=== PATIENT | female | born 1990 | race Caucasian/White ===

== ENCOUNTER 2018-07-30 09:40 | Inpatient (IN) | payer BC ==
[2018-07-30] MEDS ORDERED: Nalbuphine 10 MG/1 ML Vial IVPUSH PRN (10:55)
[2018-07-30] MEDS ORDERED: Sodium Chloride 0.9% 10 ML Syringe FLUSH PRN (10:55)
[2018-07-30] MEDS ORDERED: Lidocaine 1% 50 ML MDV INJECT PRN (10:55)
[2018-07-30] MEDS ORDERED: Oxytocin/Lactated Ringers 10 UNIT/1,000 ML BAG IV SCH ×2 (11:00)
[2018-07-30] MEDS ORDERED: Misoprostol 200 MCG Tab VAG SCH ×2 (11:00→14:00)
[2018-07-30] MEDS: Misoprostol 25 MCG (1/4 of 100 MCG) Tab ONE ×2 (11:30→11:37)
[2018-07-30] MEDS ORDERED: Bupivacaine 0.25% 10 ML SDV ONE (12:00)
[2018-07-30] MEDS ORDERED: ePHEDrine 50 MG/ML SDV IVPUSH PRN (12:32)
[2018-07-30] MEDS ORDERED: fentaNYL 100 MCG/2 ML SDV EPIDUR PRN (12:32)
[2018-07-30] MEDS ORDERED: Ondansetron 4 MG/2 ML SDV IVPUSH PRN (12:32)
--- NOTE | 2018-07-30 12:34 | PCM.PREANE ---
Preanesthetic Assessment - Anesthesia/Transfusion/Family Hx Anesthesia History: Prior Anesthesia Without Reaction Family History of Anesthesia Reaction: No Transfusion History: No Prior Transfusion(s) Intubation History: Unknown - Review of Systems General: No Symptoms Pulmonary: No Symptoms Cardiovascular: No Symptoms, Dyspnea on Exertion (with ) Gastrointestinal: No Symptoms (GERD) Neurological: No Symptoms, Numbness (right hand and left upper arm with ) Other: Reports: None - Physical Assessment NPO Status Date: 07/30/18 NPO Status Time: 12:30 Pulse: 98 O2 Sat by Pulse Oximetry: 99 Respiratory Rate: 16 Blood Pressure: 120/80 Temperature: 37 C Vital Signs: Last Vital Signs Temp 37.0 C 07/30/18 09:58 Pulse 98 07/30/18 11:33 Resp 16 07/30/18 09:58 BP 120/80 07/30/18 11:33 Pulse Ox Height: 1.63 m Weight: 97.522 kg ASA Class: 2 Mental Status: Alert & Oriented x3 Airway Class: Mallampati = 2 Dentition: Reports: Normal Dentition, Caries Thyro-Mental Finger Breadths: 3 Mouth Opening Finger Breadths: 3 ROM/Head Extension: Full Lungs: Clear to Auscultation, Normal Respiratory Effort Cardiovascular: Regular Rate, Regular Rhythm, No Murmurs - Lab Values: All labs reviewed and noted and within acceptable ranges to proceed with epidural if desired. - Allergies Allergies/Adverse Reactions: Allergies Allergy/AdvReac Type Severity Reaction Status Date / Time No Known Allergies Allergy Verified 05/23/14 02:10 CDT - Anesthesia Plan Pre-Op Medication Ordered: None - Acknowledgements Anesthesia Type Planned: Epidural Pt an Appropriate Candidate for the Planned Anesthesia: Yes Alternatives and Risks of Anesthesia Discussed w Pt/Guardian: Yes Pt/Guardian Understands and Agrees with Anesthesia Plan: Yes PreAnesthesia Questionnaire Gastrointestinal History: Reports: Other (See Below) (Some type of esophageal surgery was performed when she was a baby.) 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 Colposcopically directed biopsies in 2017 revealed LIZZETH-1. Patient has had 1 miscarriage prior to this .) - HOME MEDS Home Medications: Home Meds Folic Acid 0.8 mg PO DAILY 07/30/18 [History] PNV95/Ferrous Fumarate/FA [ Vitamin Tablet] 1 each PO DAILY 07/30/18 [ History] - CURRENT (IN HOUSE) MEDS Current Meds: Current Medications Lactated Ringer's (Ringers, Lactated) 1,000 mls @ 100 mls/hr IV ASDIRECTED JHONNY Oxytocin/Lactated Ringer's (Pitocin In Lr 10 Units/1,000 Ml) 10 unit in 1,000 mls @ 12 mls/hr IV TITRATE JHONNY; Protocol Oxytocin/Lactated Ringer's (Pitocin In Lr 10 Units/1,000 Ml) 10 unit in 1,000 mls @ 500 mls/hr IV .CONTINUOUS JHONNY Lidocaine HCl (Xylocaine 1%) 50 ml INJECT ONETIME PRN PRN Reason: Breakthrough Pain Misoprostol (Cytotec) 25 mcg VAG NOW JHONNY Misoprostol (Cytotec) 50 mcg VAG Q3HR JHONNY Nalbuphine HCl (Nubain) 10 mg IVPUSH Q2H PRN PRN Reason: Pain Sodium Chloride (Saline Flush) 10 ml FLUSH ASDIRECTED PRN PRN Reason: Keep Vein Open Discontinued Medications Misoprostol (Cytotec) Confirm Administered Dose 25 mcg .ROUTE .STK-MED ONE Stop: 07/30/18 11:12 Last Admin: 07/30/18 11:30 Dose: 25 mcg
[2018-07-30] MEDS ORDERED: Phenylephrine 1 MG in Sodium Chloride 0.9% 10 ML IV SCH (12:45)
[2018-07-30] MEDS ORDERED: Bupivacaine/fentaNYL/NS 100 ML Bag EPIDUR SCH (12:45)
[2018-07-30] MEDS: Lactated Ringers 1,000 ML IV SCH ×3 (14:30→18:14)
--- NOTE | 2018-07-30 16:02 | PCM.LDHP ---
L&D History of Present Illness - General Date of Service: 07/30/18 Admit Problem/Dx: Patient Status Order with Admit Dx/Problem 07/30/18 11:03 Admission Status [Patient Status] [ADT] Routine Admission Diagnosis/Problem Admission Diagnosis/Problem 07/30/18 15:43 27-year-old 2 para 0010 white female at 36 and 6/7 weeks gestational age with an DEO of 08/21/2018 admitted to labor and delivery with signs/symptoms of preeclampsia without severe features. Source of Information: Patient History Limitations: Reports: No Limitations - History of Present Illness Introduction:: Cindy is a 27-year-old 2 para 0010 white female at 36 and 6/7 weeks gestational age with an DEO of 08/21/2018 admitted to labor and delivery with signs/symptoms of preeclampsia without severe features. Patient was seen yesterday in clinic and again today in clinic with borderline elevated blood pressures. Preeclampsia labs were done yesterday and were entirely within normal limits. She has had symptoms possibly consistent with mild preeclampsia including headaches, spots in her vision and significant swelling. Over the course of the last week the patient has gained 7.4 pounds and in the last day she has gained 2.2 pounds. She has 1+ pitting edema and her deep tendon reflexes are +3 over 4 bilaterally in lower extremities. She does not feel well and is complaining of swelling to the degree that she is unable to close her hands. She has noted increased facial swelling also. He has been active. Nonstress test done in clinic today is reactive. She is admitted for induction of labor. Her cervix is 2 cm, 70% effaced, soft consistency, -3 station and posterior position. Artificial rupture membranes is undertaken after she had had 1 dose of Cytotec 25 g vaginally. She is david mildly at this time. heart tones are very reassuring. 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 Patient's certain last menstrual period was on 11/05/2018. Her is dated by an early ultrasound done on 2017 at 9-6/7 weeks gestational age and is supported by 3 other ultrasounds in the . Patient had 1 previous which ended in a miscarriage at 10 weeks gestational age on 09/20/2017. She passed this naturally. Patient was first seen on 01/01/2018. She was seen on a regular basis throughout the . Her vital signs remained stable until just the last week of the . Her weight gain was from 171-215 pounds for a 44+ pound weight gain. Her fundal height growth has been appropriate. Baby is in a vertex presentation. Abnormal 1 hour glucose tolerance test. Her 3 hour glucose tolerance test however was normal. She is a centering patient. Her first Pap smear showed ASCUS changes with positive high-risk HPV. Colposcopy was performed but no biopsies were obtained findings were consistent with LIZZETH-1.. Patient is group B strep negative. She had a low serum progesterone and was placed on progesterone supplementation early in the . Patient has had significant restless leg syndrome symptoms towards end of the . She did have her T dap administered on 06/24/2018. Laboratory testing shows blood to be O+ with a negative antibody screen. Her first hemoglobin was 12.8 g/dL and platelets are 311,000. She is rubella immune. RPR is nonreactive. Urine culture was negative. Hepatitis B surface antigen and HIV assays were both negative. Chlamydia and gonorrhea assays were both negative. Her diabetic screening test at second trimester was 175 and a 3 hour glucose tolerance test was normal with values as follows: Fasting blood sugar 74, 1 hour glucose 136, 2 hour glucose 110 and 3 hour glucose 43. Platelets were 301,000 at that time and her hemoglobin was 11.5 g/ dL. Patient was started on ferrous sulfate 325 mg by mouth daily at that time. Third trimester RPR was nonreactive. Platelets on 07/29/2018 were 302,000. Last hemoglobin was 11.0 on 07/29/2018. At that time her uric acid was 4.1 and liver function studies and kidney function studies were normal. Labs being done in evaluation of her borderline blood pressure elevation. Group B strep screen was negative. Allergies none Medications: 1. Hydroxyzine HCL-50 mg by mouth every at bedtime when necessary for restless leg 2. Ferrous sulfate 325 mg by mouth daily 3. vitamins 1 orally daily 4. Hardin catheter daily Past medical history: 1. Abnormal Pap smear with a LEEP in 2017ASCUS with high-risk HPV results on Pap smear with this with probable LIZZETH-1 noted on colposcopy. 2. Spontaneous miscarriage September 2017. 3. Low progesterone with this Past surgical history: 1. LEEP 2017 2. Esophageal surgery as a baby Family history: Distant cousin on mother's side with autism. Mother is alive and well. Hodgkin's lymphoma at age 28 is now 48 years of age. Father is alive and well at age 50. One brother and 2 sisters are alive and well. Maternal grandfather and maternal grandmother are both alive and well. Paternal grandfather is alive but has some type of cancer involving his back/spine. Paternal grandmother is alive but has had 2 heart attacks. She is a smoker. There is no close relation family history of cancer otherwise, regulate issues, anesthesia, bleeding or blood clotting problems. One great aunt is thought to possibly have some type of cancer. Social history: Patient is . is Misael Campared. They live in [facility]. 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 She does not use any significant most alcohol, drugs or tobacco.Review of systems: In general patient has no complaints. Skin: Negative Lungs: No infectious symptoms or shortness of breath Cardiovascular: No chest pain or exercise intolerance Breasts: Changes associated with . GI: Negative : changes Musculoskeletal: Negative Neurological: Negative Physical exam: Blood pressures obtained at home and in clinic over the course of the last 24 hours show systolic blood pressures ranging from 118-2136. Diastolic blood pressures are in the 85-98 range. Other vital signs are stable however. In general the patient is well-developed, well-nourished, pleasant female of stated age in mild to moderate distress. She had headache, on the way into the clinic today and reports significant swelling which is very uncomfortable. Skin is warm dry without lesions. She has 1+ pitting edema in lower extremities and has very edematous hands and face. HEENT, neck and back within normal limits. Facial edema noted Lungs are clear with good breath sounds in all lung brown. Cardiovascular exam shows regular and rhythm without murmurs. Breast exam is deferred. Patient plans to breast-feed. Abdomen is protuberant . Fundal height is approximately 37 cm with baby in vertex presentation. Genital exam shows cervix as described above.. Extremities and neurological show 1+ pitting edema in bilateral lower extremities. Deep tendon reflexes are +3/4 in bilateral lower extremities. No significant clonus is noted. 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 Colposcopically directed biopsies in 2017 revealed LIZZETH-1. Patient has had 1 miscarriage prior to this .) Other OB/BYN History: mild dysplasia of cervix. low serum progesterone level Musculoskeletal History: Reports: Other (See Below) Other Musculoskeletal History: restless leg syndrome - Past Surgical History HEENT Surgical History: Reports: None Cardiovascular Surgical History: Reports: None GI Surgical History: Reports: Other (See Below) Other GI Surgeries/Procedures: esophageal surgery as a 3 month old Female Surgical History: Reports: None Musculoskeletal Surgical History: Reports: None Social & Family History - Family History Cardiac: Reports: DE, Other (See Below) Respiratory: Reports: None Neurological: Reports: Other (See Below) Hematologic: Reports: Transfusion Reaction, Other (See Below) Oncologic: Reports: Hodgkin's Lymphoma, Other (See Below) Other Oncologic Family History: PGF - spine cancer - Tobacco Use Smoking Status *Q: Never Smoker Second Hand Smoke Exposure: No - Caffeine Use Caffeine Use: Reports: None - Recreational Drug Use Recreational Drug Use: No H&P Review of Systems - Review of Systems: Review Of Systems: See Below L&D Exam - Exam Exam: See Below - Vital Signs Vital Signs: Last Vital Signs Temp 37 C 07/30/18 13:39 Pulse 98 07/30/18 13:39 Resp 16 07/30/18 13:39 BP 120/80 07/30/18 13:39 Pulse Ox 99 07/30/18 13:39 Weight: 97.522 kg Problem List Initiated/Reviewed/Updated: Yes Orders Last 24hrs: Active Orders 24 hr Category Date Time Status Admission Status [Patient Status] [ADT] Routine ADT 07/30/18 11:03 Active Activity as Tolerated [RC] PFP Care 07/30/18 10:55 Active Communication Order [RC] ASDIRECTED Care 07/30/18 10:55 Active Notify Provider [RC] ASDIRECTED Care 07/30/18 12:31 Active Notify Provider [RC] PFP Care 07/30/18 10:55 Active Notify Provider [RC] PRN Care 07/30/18 10:55 Active Oxygen Therapy [RC] ASDIRECTED Care 07/30/18 12:31 Active Peripheral IV Care [RC] Q2HR Care 07/30/18 10:55 Active Pulse Oximetry [RC] ASDIRECTED Care 07/30/18 12:31 Active Vital Signs [RC] PER UNIT ROUTINE Care 07/30/18 09:58 Active Regular Diet [DIET] Diet 07/30/18 Lunch Active RAPID PLASMA REAGIN,RPR [CHEM] Routine Lab 07/30/18 11:23 Received Bupivacaine/fentaNYL/NS [fentaNYL/Bupivacaine/NS 2 MCG- Med 07/30/18 12:45 Active 0.125% 100 ML] 100 ml EPIDUR ASDIRECTED Lactated Ringers [Ringers, Lactated] 1,000 ml Med 07/30/18 11:00 Active IV ASDIRECTED Lidocaine 1% [Xylocaine 1%] Med 07/30/18 10:55 Active 50 ml INJECT ONETIME PRN Nalbuphine [Nubain] Med 07/30/18 10:55 Active 10 mg IVPUSH Q2H PRN Ondansetron [Zofran] Med 07/30/18 12:32 Active 4 mg IVPUSH ONETIME PRN Oxytocin/Lactated Ringers [Pitocin in LR 10 Units/1,000 Med 07/30/18 11:00 Active ML] 10 unit in 1,000 ml IV .CONTINUOUS Oxytocin/Lactated Ringers [Pitocin in LR 10 Units/1,000 Med 07/30/18 11:00 Active ML] 10 unit in 1,000 ml IV TITRATE Phenylephrine [Aba-Synephrine] 1 mg Med 07/30/18 12:45 Active Sodium Chloride 0.9% [Normal Saline] 10 ml IV TITRATE Sodium Chloride 0.9% [Saline Flush] Med 07/30/18 10:55 Active 10 ml FLUSH ASDIRECTED PRN ePHEDrine [ePHEDrine sulfate] Med 07/30/18 12:32 Active 5 mg IVPUSH ASDIRECTED PRN fentaNYL [Sublimaze] Med 07/30/18 12:32 Active 100 mcg EPIDUR Q3H PRN miSOPROStol [Cytotec] Med 07/30/18 11:00 Active 25 mcg VAG NOW Electronic Heart Tones Ext w TOCO [WOMSER] Ot 07/30/18 10:55 Ordered Routine Electronic Heart Tones Internal [WOMSER] Per Unit Ot 07/30/18 10:55 Ordered Routine Peripheral IV Insertion Adult [OM.PC] Routine Ot 07/30/18 10:55 Ordered Resuscitation Status Routine Resus Stat 07/30/18 09:58 Ordered Medication Orders Ephedrine Sulfate (Ephedrine Sulfate) 5 mg IVPUSH ASDIRECTED PRN PRN Reason: Hypotension Fentanyl (Sublimaze) 100 mcg EPIDUR Q3H PRN PRN Reason: Pain Fentanyl/Bupivacaine HCl (Fentanyl/Bupivacaine/Ns 2 Mcg-0.125% 100 Ml) 100 ml EPIDUR ASDIRECTED JHONNY Lactated Ringer's (Ringers, Lactated) 1,000 mls @ 100 mls/hr IV ASDIRECTED JHONNY Last Admin: 07/30/18 14:30 Dose: 100 mls/hr Oxytocin/Lactated Ringer's (Pitocin In Lr 10 Units/1,000 Ml) 10 unit in 1,000 mls @ 12 mls/hr IV TITRATE JHONNY; Protocol Last Titration: 07/30/18 14:58 Dose: 4 munits/min, 24 mls/hr Admin: 07/30/18 14:30 Dose: 2 munits/min, 12 mls/hr Oxytocin/Lactated Ringer's (Pitocin In Lr 10 Units/1,000 Ml) 10 unit in 1,000 mls @ 500 mls/hr IV .CONTINUOUS JHONNY Phenylephrine HCl 1 mg/ Sodium (Chloride) 10.1 mls @ 1 mls/sec IV TITRATE JHONNY; Protocol Lidocaine HCl (Xylocaine 1%) 50 ml INJECT ONETIME PRN PRN Reason: Breakthrough Pain Misoprostol (Cytotec) 25 mcg VAG NOW JHONNY Nalbuphine HCl (Nubain) 10 mg IVPUSH Q2H PRN PRN Reason: Pain Ondansetron HCl (Zofran) 4 mg IVPUSH ONETIME PRN PRN Reason: Nausea/Vomiting Sodium Chloride (Saline Flush) 10 ml FLUSH ASDIRECTED PRN PRN Reason: Keep Vein Open Assessment/Plan Comment:: 1. 36-6/7 week intrauterine , preeclampsia without severe features. Signs/symptoms include significant edema, excessive weight gain, increased deep tendon reflexes and hypertension. 2. Laboratory testing done yesterday for -induced hypertension evaluation is essentially negative. 3. Patient plans to breast-feed. 4. Patient wishes to do natural labor but is accepting of epidural 5. RPR nonreactive 6. Rubella immune Plan: 1. Induction of labor. The procedure, risks, benefits, alternatives of care discussed in detail with patient and her . It appeared to understand and wish to proceed with the plan. Patient has received 1 dose of Cytotec and now has undergone artificial rupture membranes for induction/augmentation of labor. She has made cervical change with the Cytotec. 2. Monitor blood pressures closely. Treat as indicated. We'll monitor deep tendon reflexes. 3. Anticipate normal spontaneous vaginal delivery 4. Support breast-feeding decision 5. Epidural was offered if patient desires 6. RPR and CBC upon admission
[2018-07-30] MEDS ORDERED: diphenhydrAMINE 50 MG/ML SDV IVPUSH PRN (17:57)
--- NOTE | 2018-07-30 20:42 | PCM.SN ---
- Free Text/Narrative Note: Jimmy is a 27-year-old 2 now para 1011 white female who was admitted early on 07/30/2018 for elevated blood pressures, signs/symptoms of preeclampsia without severe features. Her pressures systolically were mildly elevated as were diastolic blood pressures mainly in the 90s. She was edematous and again significant amount of weight in the last week. Liver function studies and kidney function studies along with uric acid within normal limits on the day prior to admission. She is admitted and had 1 dose of Cytotec placed for cervical ripening. Cervix dilated to 2 cm, 70% effaced, -3 station, posterior position and soft. Artificial rupture membranes was undertaken with resultant clear amniotic fluid. She progressed relatively rapidly. She underwent epidural for labor and analgesia. By approximately 1930 hrs. and became completely dilated. At 2012 hrs. on 07/30/2018 patient delivered a viable, lopes, female with a weight of 2870 g (6 pounds 5.2 ounces), Apgars of 7 and 9. Baby delivered in a left occiput anterior position. Patient had a small vaginal laceration at 6 o'clock position. No perineal laceration was noted. After delivery the cord was clamped 2 and cut by the baby's father. Cord blood was obtained. The vaginal laceration was repaired with 3-0 Monocryl in a running lock suture fashion. Epidural analgesia was used for anesthesia for the vaginal laceration repair. The placenta delivered at 2020 hrs. in a Florentino presentation, appeared intact and complete and was scarred patient desire. No cord had 3 blood vessels. Cord blood was obtained. This will also approximately 200 mL. Patient plans to breast -feed. Condition: Good.
[2018-07-30] MEDS ORDERED: Lanolin 100% Cream 7 GM Tube TOP PRN (21:04)
[2018-07-30] MEDS ORDERED: Docusate Sodium 100 MG Cap PO PRN (21:04)
[2018-07-30] MEDS ORDERED: Benzocaine/Menthol 20%-0.5% Spray 56 GM Canister TOP PRN (21:04)
[2018-07-30] MEDS ORDERED: Witch Hazel Medicated Pads 40/Jar TOP PRN (21:04)
[2018-07-30] MEDS: Ibuprofen 600 MG Tab PO PRN (22:16)
[2018-07-31] MEDS: Acetaminophen 325 MG Tab PO PRN ×4 (03:08→21:43)
[2018-07-31] MEDS: Ibuprofen 600 MG Tab PO PRN ×2 (04:33→11:39)
[2018-07-31] MEDS: Prenatal Multivitamin with Calcium/Folic Acid/Iron Tab PO SCH (08:15)
--- NOTE | 2018-07-31 08:40 | PCM.SN ---
- Free Text/Narrative Note: note: Patient is doing well in the period. Minimal lochia, voiding well, ambulated without problems. Nursing without concerns. Patient is afebrile, vital signs are stable-specifically her blood pressures have normalized. Face is very puffy and edematous. Abdomen is flat, soft, uterus is below the umbilicus and is firm and nontender. Legs are nontender. Lower extremities and upper extremities are extremely swollen. Assessment: recovery going well. Blood pressures normalized. Findings consistent with preeclampsia without severe features. Baby is doing well. Plan: Routine care. Patient be discharged home within the next 24- 48 hours.
--- NOTE | 2018-07-31 12:24 | PCM48HPAN ---
Post Anesthesia Note - EVALUATION WITHIN 48HRS OF ANESTHETIC Vital Signs in Normal Range: Yes Patient Participated in Evaluation: Yes Respiratory Function Stable: Yes Airway Patent: Yes Cardiovascular Function Stable: Yes Hydration Status Stable: Yes Pain Control Satisfactory: Yes Nausea and Vomiting Control Satisfactory: Yes Mental Status Recovered: Yes
[2018-08-01] MEDS: Ibuprofen 600 MG Tab PO PRN ×3 (01:22→14:09)
[2018-08-01] MEDS: Prenatal Multivitamin with Calcium/Folic Acid/Iron Tab PO SCH (08:22)
--- NOTE | 2018-08-01 11:57 | PCM.SN ---
- Free Text/Narrative Note: Post Progress Note PPD # 2 Subjective: Doing well overall. Ambulating without difficulty. Lochia minimal. Voiding without difficulty. Tolerating regular diet without nausea or vomiting. Pain controlled with oral medications. Breast-feeding with minimal difficulty. Denies any headaches, vision changes or epigastric pain. She reports that she does have some numbness in the fingers in her right hand in her left elbow. The numbness in her left elbow was present prior to delivery. The numbness in her hand and elbow do seem to be improving slightly. Objective: Vitals: Vital Signs - 24 hr 07/31/18 07/31/18 08/01/18 15:11 20:52 03:13 Temperature 36.6 C 36.8 C Pulse, 85 102 H 98 Peripheral Respiratory 15 16 14 Rate Blood Pressure 134/75 128/81 124/73 O2 Sat by Pulse 98 100 95 Oximetry 08/01/18 08/01/18 08/01/18 03:15 03:57 08:21 Temperature 36.8 C 37.1 C 36.8 C Pulse, 89 87 Peripheral Respiratory 20 16 Rate Blood Pressure 130/85 127/77 O2 Sat by Pulse 98 99 Oximetry Physical Exam General: Alert and oriented, no acute distress Lungs: Clear to auscultation bilaterally Heart: Regular rate and rhythm Abdomen: Soft, minimal appropriate tenderness, non-distended, fundus midline, nontender, and at the umbilicus Extremities: 1+ edema in bilateral feet to lower legs ASSESSMENT: 27-year-old female s/p normal vaginal delivery PPD #2, complicated by preeclampsia without severe features and carpal tunnel syndrome in PLAN: Doing well Breast-feeding with minimal difficulty. Assist as needed Lochia minimal. Continue to monitor for appropriate lochia. Normal blood pressures since delivery. No severe symptoms such as headache, vision changes or epigastric pain. Continue routine care Discharge home today Shailesh Sanchez MD 11:56 AM 08/01/2018
--- NOTE | 2018-08-01 12:05 | PCM.DCSUM1 ---
Discharge Summary - Hospital Course Free Text/Narrative:: Jimmy is a 27-year-old 2 now para 1011 white female who was admitted early on 07/30/2018 for elevated blood pressures, signs/symptoms of preeclampsia without severe features. Her pressures systolically were mildly elevated as were diastolic blood pressures mainly in the 90s. She was edematous and again significant amount of weight in the last week. Liver function studies and kidney function studies along with uric acid within normal limits on the day prior to admission. She is admitted and had 1 dose of Cytotec placed for cervical ripening. Cervix dilated to 2 cm, 70% effaced, -3 station, posterior position and soft. Artificial rupture membranes was undertaken with resultant clear amniotic fluid. She progressed relatively rapidly. She underwent epidural for labor and analgesia. By approximately 1930 hrs. and became completely dilated. At 2012 hrs. on 07/30/2018 patient delivered a viable, lopes, female infant with a weight of 2870 g (6 pounds 5.2 ounces), Apgars of 7 and 9. Baby delivered in a left occiput anterior position. Patient had a small vaginal laceration at 6 o'clock position. No perineal laceration was noted. After delivery the cord was clamped 2 and cut by the baby's father. Cord blood was obtained. The vaginal laceration was repaired with 3-0 Monocryl in a running lock suture fashion. Epidural analgesia was used for anesthesia for the vaginal laceration repair. The placenta delivered at 1 hrs. in a Florentino presentation, appeared intact and complete and was scarred patient desire. No cord had 3 blood vessels. Cord blood was obtained. This will also approximately 200 mL. Patient plans to breast -feed. Condition: Good. HPI Initial Comments: Jimmy is a 27-year-old 2 now para 1011 white female who was admitted early on 07/30/2018 for elevated blood pressures, signs/symptoms of preeclampsia without severe features. Her pressures systolically were mildly elevated as were diastolic blood pressures mainly in the 90s. She was edematous and again significant amount of weight in the last week. Liver function studies and kidney function studies along with uric acid within normal limits on the day prior to admission. She is admitted and had 1 dose of Cytotec placed for cervical ripening. Cervix dilated to 2 cm, 70% effaced, -3 station, posterior position and soft. Artificial rupture membranes was undertaken with resultant clear amniotic fluid. She progressed relatively rapidly. She underwent epidural for labor and analgesia. By approximately 1930 hrs. and became completely dilated. At 2012 hrs. on 07/30/2018 patient delivered a viable, lopes, female with a weight of 2870 g (6 pounds 5.2 ounces), Apgars of 7 and 9. Baby delivered in a left occiput anterior position. Patient had a small vaginal laceration at 6 o'clock position. No perineal laceration was noted. After delivery the cord was clamped 2 and cut by the baby's father. Cord blood was obtained. The vaginal laceration was repaired with 3-0 Monocryl in a running lock suture fashion. Epidural analgesia was used for anesthesia for the vaginal laceration repair. The placenta delivered at 2020 hrs. in a Florentino presentation, appeared intact and complete and was scarred patient desire. No cord had 3 blood vessels. Cord blood was obtained. This will also approximately 200 mL. Patient plans to breast -feed. Condition: Good. Brief History: Jimmy is a 27-year-old 2 now para 1011 white female who was admitted early on 07/30/2018 for elevated blood pressures, signs/symptoms of preeclampsia without severe features. Her pressures systolically were mildly elevated as were diastolic blood pressures mainly in the 90s. She was edematous and again significant amount of weight in the last week. Liver function studies and kidney function studies along with uric acid within normal limits on the day prior to admission. She is admitted and had 1 dose of Cytotec placed for cervical ripening. Cervix dilated to 2 cm, 70% effaced, -3 station, posterior position and soft. Artificial rupture membranes was undertaken with resultant clear amniotic fluid. She progressed relatively rapidly. She underwent epidural for labor and analgesia. By approximately 1930 hrs. and became completely dilated. At 2011 hrs. on 07/30/2018 patient delivered a viable, lopes, female with a weight of 2870 g (6 pounds 5.2 ounces), Apgars of 7 and 9. Baby delivered in a left occiput anterior position. Patient had a small vaginal laceration at 6 o'clock position. No perineal laceration was noted. After delivery the cord was clamped 2 and cut by the baby's father. Cord blood was obtained. The vaginal laceration was repaired with 3-0 Monocryl in a running lock suture fashion. Epidural analgesia was used for anesthesia for the vaginal laceration repair. The placenta delivered at 1 hrs. in a Florentino presentation, appeared intact and complete and was scarred patient desire. No cord had 3 blood vessels. Cord blood was obtained. This will also approximately 200 mL. Patient plans to breast-feed. Condition: Good. Diagnosis: Stroke: No - Discharge Data Discharge Date: 08/01/18 Discharge Disposition: Home, Self-Care 01 Condition: Good - Discharge Diagnosis/Problem(s) (1) 36 weeks gestation of SNOMED Code(s): 09535666 ICD Code: Z3A.36 - 36 WEEKS GESTATION OF Status: Acute Current Visit: Yes (2) Preeclampsia SNOMED Code(s): 357088718 ICD Code: O14.90 - UNSPECIFIED PRE-ECLAMPSIA, UNSPECIFIED TRIMESTER Status : Acute Current Visit: Yes (3) Carpal tunnel syndrome during SNOMED Code(s): 56726188 ICD Code: O26.899 - OTH RELATED CONDITIONS, UNSPECIFIED TRIMESTER; G56.00 - CARPAL TUNNEL SYNDROME, UNSPECIFIED UPPER LIMB Status: Acute Current Visit: Yes (4) Vaginal delivery SNOMED Code(s): 244343828 ICD Code: O80 - ENCOUNTER FOR FULL-TERM UNCOMPLICATED DELIVERY Status: Acute Current Visit: Yes - Patient Summary/Data Complications: None Consults: None Hospital Course: Jimmy Elias was admitted for induction of labor in the setting of preeclampsia without severe features at 36 weeks 6 days. On admission her cervix was dilated to 2 cm. She was GBS negative. She was given Cytotec one dose for cervical ripening. She was given pitocin for augmentation. She was given an epidural for anesthesia. She had artificial rupture of membranes with clear fluid. She progressed to complete and began pushing. On 07/30/2018 she had a normal vaginal delivery of a live female at 2012. Apgars of 7 and 9. Weight of 2870 g (6 pounds 5.2 ounces). Her course was uneventful. Her pain was well controlled and she had minimal lochia. She was ambulating, tolerating a regular diet and voiding normally. She was breast- feeding with minimal difficulty. She was afebrile and her hematocrit was 33.1 on 07/29/2018 when she had evaluation for preeclampsia performed. She desired to be discharged home on the morning of PPD #2. Her blood type is O+. - Patient Instructions Diet: Regular Diet as Tolerated Activity: Apply Ice, As Tolerated Activity, Other: Nothing in the vagina for 6 weeks Driving: May Drive Today Showering/Bathing: May Shower Notify Provider of: Fever, Increased Pain, Swelling and Redness, Drainage, Nausea and/or Vomiting Other/Special Instructions: Please contact your physician's office if you have heavy vaginal bleeding enough to soak a pad in less than an hour for several hours. Monitor for any signs of an infection in the breasts with severe pain or redness of the breast. - Discharge Plan *PRESCRIPTION DRUG MONITORING PROGRAM REVIEWED*: Not Applicable *COPY OF PRESCRIPTION DRUG MONITORING REPORT IN PATIENT OSVALDO: Not Applicable Home Medications: Home Meds Folic Acid 0.8 mg PO DAILY 07/30/18 [History] PNV95/Ferrous Fumarate/FA [ Vitamin Tablet] 1 each PO DAILY 07/30/18 [ History] Acetaminophen [Tylenol] 650 mg PO Q6H PRN tablet 08/01/18 [Rx] Benzocaine/Menthol [Dermoplast Pain Relief Souris] 1 spray TOP ASDIRECTED PRN canister 08/01/18 [Rx] Docusate Sodium [Colace] 100 mg PO BID PRN cap 08/01/18 [Rx] Ibuprofen [Motrin] 600 mg PO Q6H PRN tablet 08/01/18 [Rx] Lanolin [Lansinoh HPA] 1 applic TOP ASDIRECTED PRN tube 08/01/18 [Rx] Witch Najma [Tucks] 1 pad TOP ASDIRECTED PRN pad 08/01/18 [Rx] Patient Handouts: and Self-Care, [id number], Vaginal Delivery, Care After, Breast Pumping Tips, [id number], Care of a Perineal Tear Referrals: Alexis Jennings MD [Primary Care Provider] - (Follow-up in 2 weeks for routine visit or earlier as needed.) - Discharge Summary/Plan Comment DC Time >30 min.: No - Patient Data Vitals - Most Recent: Last Vital Signs Temp 36.8 C 08/01/18 08:21 Pulse 87 08/01/18 08:21 Resp 16 06/15/19 08:21 BP 127/77 08/01/18 08:21 Pulse Ox 99 08/01/18 08:21 Weight - Most Recent: 97.522 kg I&O - Last 24 hours: Intake & Output 07/31/18 08/01/18 08/01/18 22:59 06:59 14:59 Intake Total 240 Balance 240 Med Orders - Current: Current Medications Acetaminophen (Tylenol) 650 mg PO Q4H PRN PRN Reason: mild pain or fever Last Admin: 07/31/18 21:43 Dose: 650 mg Benzocaine/Menthol (Dermoplast Pain Relief Souris) 0 gm TOP ASDIRECTED PRN PRN Reason: Perineal Comfort Measure Last Admin: 07/30/18 22:15 Dose: 1 can Docusate Sodium (Colace) 100 mg PO BID PRN PRN Reason: Constipation Emollient Ointment (Lansinoh Hpa) 0 gm TOP ASDIRECTED PRN PRN Reason: Sore Nipples Ibuprofen (Motrin) 600 mg PO Q4H PRN PRN Reason: Mild pain or fever Last Admin: 08/01/18 08:22 Dose: 600 mg Prenat Multivit/[place]/Iron/Folic Ac ( Plus Iron) 1 each PO DAILY JHONNY Last Admin: 08/01/18 08:22 Dose: 1 each Witch Najma (Tucks) 1 pad TOP ASDIRECTED PRN PRN Reason: Pain Last Admin: 07/30/18 22:15 Dose: 1 carton Discontinued Medications Bupivacaine HCl (Sensorcaine-Mpf 0.25%) 10 ml .ROUTE .STK-MED ONE Stop: 07/30/18 12:01 Diphenhydramine HCl (Benadryl) 25 mg IVPUSH Q4H PRN PRN Reason: Itching Last Admin: 07/30/18 18:06 Dose: 25 mg Ephedrine Sulfate (Ephedrine Sulfate) 5 mg IVPUSH ASDIRECTED PRN PRN Reason: Hypotension Fentanyl (Sublimaze) 100 mcg EPIDUR Q3H PRN PRN Reason: Pain Last Admin: 07/30/18 16:36 Dose: 100 mcg Fentanyl/Bupivacaine HCl (Fentanyl/Bupivacaine/Ns 2 Mcg-0.125% 100 Ml) 100 ml EPIDUR ASDIRECTED JHONNY Last Admin: 07/30/18 16:36 Dose: 100 ml Lactated Ringer's (Ringers, Lactated) 1,000 mls @ 100 mls/hr IV ASDIRECTED JHONNY Last Infusion: 07/30/18 18:14 Dose: 100 mls/hr Oxytocin/Lactated Ringer's (Pitocin In Lr 10 Units/1,000 Ml) 10 unit in 1,000 mls @ 12 mls/hr IV TITRATE JHONNY; Protocol Last Titration: 07/30/18 18:34 Dose: 4 munits/min, 24 mls/hr Oxytocin/Lactated Ringer's (Pitocin In Lr 10 Units/1,000 Ml) 10 unit in 1,000 mls @ 500 mls/hr IV .CONTINUOUS JHONNY Phenylephrine HCl 1 mg/ Sodium (Chloride) 10.1 mls @ 1 mls/sec IV TITRATE JHONNY; Protocol Lidocaine HCl (Xylocaine 1%) 50 ml INJECT ONETIME PRN PRN Reason: Breakthrough Pain Misoprostol (Cytotec) 25 mcg VAG NOW JHONNY Misoprostol (Cytotec) 50 mcg VAG Q3HR JHONNY Misoprostol (Cytotec) Confirm Administered Dose 25 mcg .ROUTE .STK-MED ONE Stop: 07/30/18 11:12 Last Admin: 07/30/18 11:30 Dose: 25 mcg Nalbuphine HCl (Nubain) 10 mg IVPUSH Q2H PRN PRN Reason: Pain Ondansetron HCl (Zofran) 4 mg IVPUSH ONETIME PRN PRN Reason: Nausea/Vomiting Sodium Chloride (Saline Flush) 10 ml FLUSH ASDIRECTED PRN PRN Reason: Keep Vein Open
[2018-08-01 15:48] VITALS: BP 121/66
== END 2018-08-01 15:41 | disposition home or self-care (01) | DRG 560 ==
LOC: JD.OB 09:40 → OBSVTOIN 20:12 → JD.OB 20:12
PROVIDERS: ADMIT Obstetrics & Gynecology; ATTEND Obstetrics & Gynecology
PROC: 10E0XZZ Delivery of Products of Conception, External Approach (ICD-10-PCS; principal; 2018-07-30)
PROC: 10907ZC Drainage of Amniotic Fluid, Therapeutic from Products of Conception, Via Natural or Artificial Opening (ICD-10-PCS; 2018-07-30)
PROC: 3E0P7VZ Introduction of Hormone into Female Reproductive, Via Natural or Artificial Opening (ICD-10-PCS; 2018-07-30)
PROC: 0UQGXZZ Repair Vagina, External Approach (ICD-10-PCS; 2018-07-30)
DX: O11.4 Pre-existing hypertension with pre-eclampsia, complicating childbirth (principal); O10.92 Unspecified pre-existing hypertension complicating childbirth; O60.14X0 Preterm labor third trimester with preterm delivery third trimester, not applicable or unspecified; O71.4 Obstetric high vaginal laceration alone; O26.893 Other specified pregnancy related conditions, third trimester; G56.00 Carpal tunnel syndrome, unspecified upper limb; Z3A.36 36 weeks gestation of pregnancy; Z37.0 Single live birth
CPT/HCPCS: 36415; 51702; 59025; 59409; 86592; A9270-GY; J1200; J2590; J3010; J3490; J7120

== ENCOUNTER 2019-08-23 05:54 | Inpatient (IN) | payer BC ==
[2019-08-23] MEDS ORDERED: Ondansetron 4 MG/2 ML SDV IVPUSH PRN (19:35)
[2019-08-23] MEDS ORDERED: Acetaminophen 325 MG Tab PO PRN (19:35)
[2019-08-23] MEDS ORDERED: Calcium Carbonate 500 MG Tab.Chew PO PRN (19:35)
[2019-08-23] MEDS ORDERED: Lidocaine 1% 50 ML MDV INJECT ONE (19:35)
[2019-08-23] MEDS ORDERED: Nalbuphine 10 MG/ML Syringe IVPUSH PRN (19:35)
[2019-08-23] MEDS ORDERED: Sodium Chloride 0.9% 10 ML Syringe FLUSH PRN (19:35)
[2019-08-23] MEDS ORDERED: Oxytocin/Lactated Ringers 10 UNIT/1,000 ML BAG IV SCH ×2 (19:45→20:15)
[2019-08-23] MEDS ORDERED: Lactated Ringers 1,000 ML IV SCH (19:45)
[2019-08-23] MEDS: Lactated Ringers 1,000 ML IV SCH ×2 (20:07→22:45)
--- NOTE | 2019-08-23 21:40 | PCM.LDHP ---
L&D History of Present Illness - General Date of Service: 08/23/19 Admit Problem/Dx: Patient Status Order with Admit Dx/Problem 08/23/19 19:36 Patient Status [ADT] Routine Admission Diagnosis/Problem Admission Diagnosis/Problem Term 08/23/19 21:28 Jimmy is a 28-year-old 3 para 1011 white female who presently is at 39 and 47 weeks gestational age with an DEO of 08/26/2019 was admitted for elective induction of labor. Source of Information: Patient History Limitations: Reports: No Limitations - History of Present Illness Introduction:: Jimmy is a 28-year-old 3 para 1011 white female who presently is at 39 and 47 weeks gestational age with an DEO of 08/26/2019 was admitted for elective induction of labor.The process of labor and delivery with Pitocin induction and artificial rupture membranes augmentation is discussed in detail the patient including the procedure, risks, benefits, limitations, follow-up and alternatives of care including allowing for natural onset of labor. She appears understand, wishes to proceed. 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 DEO is set at 08/26/2019 by a certain LMP. First ultrasound was done at 10-6/7 weeks. It supports her LMP of 11/19/2018 which in turn was supported by at least 5 ultrasounds done during the course of . Patient had menarche at age 14. Cycles occur every 28 days with duration her last missed period was fairly certain and regular. Her obstetric history includes a miscarriage occurring 09/20/2017 at 10 weeks gestational age. Also includes a female born 07/30/2017 at 36-6/7 weeks gestational age after 8 hours of labor via normal spontaneous vaginal delivery. Patient had an epidural and delivered at [facility]. She had a medical induction secondary to preeclampsia. course: First visit was on 02/04/2019 at 11 weeks gestational age. Patient was seen on a very regular basis during the course of . Her vital signs remained stable throughout the course. Her weight gain was from 176 pounds to 213 pounds for a 37 pound increase. Fundal height growth was appropriate. Patient desires an epidural in labor. She is group B strep negative. She had an abnormal 1 hour glucose tolerance test of 138. History of glucose tolerance test however was unremarkable. Patient declined genetic testing during the course of . She also declined the influenza vaccination. Her most significant risk factor was history of preeclampsia with first with medical induction at 36+ weeks. She also lives approximately 1-1/2 hours from the hospital. She plans to breast-feed. She also has restless legs syndrome which was treated with hydroxyzine during the course of . Laboratory testing in shows blood to be O positive with a negative antibody screen. First hemoglobin was well 12 .3 g/dL and platelets were 343,000. Rubella titer shows immunity. Urine culture was unremarkable. HIV and VDRL were unremarkable as was hepatitis B surface antigen. Chlamydia and gonorrhea tests were both negative. Second trimester hemoglobin was 11.1 g/dL. At that time she is advised to get on extra iron in the form of ferrous sulfate 325 mg by mouth daily. Her platelets second trimester were 345,000. One-hour GTT was elevated at 138. Her 3 or glucose showed a fasting blood sugar of 79. One- hour glucose was 191. Two hour glucose of 144 and 3 hour glucose was 46. On 08/03/2019 her hemoglobin was 10.5 g/dL and platelets are group B strep screen is negative. Patient had her Tdap on 06/28/2019. She is rubella immune. Hepatitis A vaccinations given 05/24/2008. Hepatitis B immunizations given 05/30/2005. Meningococcal immunization given August 02, 2010 08/02/2010. Td given 09/21/2004. Allergies: None Medications: 1. Hydroxyzine 25 mg oral tablets 1-3 times per day when necessary for restless leg syndrome 2. vitamins 1 daily 3. Forecasted daily 4. Calcium tabs daily 5. Aspirin 81 mg per day in prophylaxis for history of preeclampsia. Past medical history: 1. 07/30/2018 2. Preeclampsia with first term 3. Miscarriage 09/21/1999 1810 weeks gestational age 4. Abnormal Pap smear 2016 5. Restless leg syndrome Past surgical history: 1. LEEP done in 2017 2. Esophageal surgery as a baby Family history: Mother is alive. She has history of Hodgkin's lymphoma at age 29. Now she is 48 and doing well. Father is alive and well at age 50. One brother and 2 sisters are alive and well. Maternal grandfather and maternal grandmother are alive and well. Paternal grandfather is alive but has some type of cancer involving his spine. Paternal grandmother is alive but has had 2 heart attacks. She is a smoker. There is no family history of cancer otherwise, previous related issues, anesthesia problems, blood clots or bleeding disorders. One great aunt does have cancer type unknown. A distance cousin on patient's mother's side with autism. Social history: Patient is . is Misael. 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 She does not use any significant most alcohol, drugs or tobacco. She and her family live in [place], [place]. Review of systems: In general patient has no complaints. She reports good activity. Occasional Nahum Hdez are also noted. Skin: Negative Lungs: No infectious symptoms or shortness of breath Cardiovascular: No chest pain or exercise intolerance Breasts: No lumps, changes in size, pain, dimpling, discharge or axillary or supraclavicular concerns. GI: Negative : body habitus changes noted Musculoskeletal: Negative Neurological: Negative In general the patient is well-developed, well-nourished, pleasant female of stated age in no acute distress. On last evaluation clinic on 08/19/2019 patient blood pressures 110/68. Weight was 213.8 with pre- weight at 174.0 pounds. heart rate was 136. Pre body mass index was 27.8 and height is 5 feet 6 inches. Skin is warm dry without lesions. HEENT, neck and back within normal limits. Lungs are clear with good breath sounds in all lung brown. Cardiovascular exam shows regular and rhythm without murmurs. Breast exam is deferred having been on first visit and found to be normal it is not repeated at this time. Abdomen is gravid with a fundal height of 39.5 cm on last evaluation clinic on 08/19/2019. Genital per digital exam shows cervix to be 1-2 cm dilated, with 60% effacement, soft, cephalic presentation. It is mid position. Extremities and neurological exam are grossly within normal limits. - Related Data Allergies/Adverse Reactions: Allergies Allergy/AdvReac Type Severity Reaction Status Date / Time No Known Allergies Allergy Verified 08/16/19 04:18 Home Medications: Home Meds . 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 low serum progesterone level Musculoskeletal History: Reports: Other (See Below) Other Musculoskeletal History: restless leg syndrome - Past Surgical History HEENT Surgical History: Reports: Oral Surgery Cardiovascular Surgical History: Reports: None GI Surgical History: Reports: Other (See Below) Other GI Surgeries/Procedures: esophageal surgery as a 3 month old Female Surgical History: Reports: LEEP, Other (See Below) Other Female Surgeries/Procedures: Colposcopy Musculoskeletal Surgical History: Reports: None Social & Family History - Family History Family Medical History: Noncontributory Cardiac: Reports: [place], Other (See Below) Respiratory: Reports: None Neurological: Reports: Other (See Below) Hematologic: Reports: Transfusion Reaction, Other (See Below) Oncologic: Reports: Hodgkin's Lymphoma, Other (See Below) Other Oncologic Family History: PGF - spine cancer - Caffeine Use Caffeine Use: Reports: None H&P Review of Systems - Review of Systems: Review Of Systems: See Below L&D Exam - Exam Exam: See Below - Vital Signs Vital Signs: Last Vital Signs Temp 36.7 C 08/23/19 19:35 Pulse 95 08/23/19 19:35 Resp 16 08/23/19 19:35 BP 132/84 08/23/19 19:35 Pulse Ox 98 08/23/19 19:35 - Patient Data Lab Results Last 24 hrs: Laboratory Results - last 24 hr 08/23/19 08/23/19 Range/Units 19:42 19:53 WBC 10.16 H (3.98-10.04) K/mm3 RBC 4.19 (3.98-5.22) M/mm3 Hgb 10.2 L (11.2-15.7) gm/dl Hct 32.3 L (34.1-44.9) % MCV 77.1 L (79.4-94.8) fl MCH 24.3 L (25.6-32.2) pg MCHC 31.6 L (32.2-35.5) g/dl RDW Std Deviation 37.8 (36.4-46.3) fL Plt Count 318 (182-369) K/mm3 MPV 9.7 (9.4-12.3) fl Neut % (Auto) 59.8 (34.0-71.1) % Lymph % (Auto) 32.2 (19.3-51.7) % Creek % (Auto) 7.3 (4.7-12.5) % Eos % (Auto) 0.3 L (0.7-5.8) Baso % (Auto) 0.2 (0.1-1.2) % Neut # (Auto) 6.08 (1.56-6.13) K/mm3 Lymph # (Auto) 3.27 (1.18-3.74) K/mm3 Creek # (Auto) 0.74 H (0.24-0.36) K/mm3 Eos # (Auto) 0.03 L (0.04-0.36) K/mm3 Baso # (Auto) 0.02 (0.01-0.08) K/mm3 COVID-19 (SACHI) Negative (NEGATIVE) Result Diagrams: 08/23/19 19:53 Problem List Initiated/Reviewed/Updated: Yes Orders Last 24hrs: Active Orders 24 hr Category Date Time Status Patient Status [ADT] Routine ADT 08/23/19 19:36 Active Activity as Tolerated [RC] PFP Care 08/23/19 19:35 Active Antiembolic Devices [RC] .Routine Care 08/23/19 19:38 Active Communication Order [RC] ASDIRECTED Care 08/23/19 19:35 Active Communication Order [RC] ASDIRECTED Care 08/23/19 19:35 Active Communication Order [RC] ASDIRECTED Care 08/23/19 19:35 Active Communication Order [RC] ASDIRECTED Care 08/23/19 19:35 Active Notify Provider [RC] ASDIRECTED Care 08/23/19 19:35 Active Notify Provider [RC] PFP Care 08/23/19 19:35 Active Notify Provider [RC] PRN Care 08/23/19 19:35 Active Peripheral IV Care [RC] Q2HR Care 08/23/19 19:36 Active Urinary Catheter Assessment [RC] ASDIRECTED Care 08/23/19 19:35 Active Regular Diet [DIET] Diet 08/23/19 Dinner Active BLOOD BANK HOLD SPECIMEN [BBK] Stat Lab 08/23/19 19:55 Received RAPID PLASMA REAGIN,RPR [CHEM] Stat Lab 08/23/19 19:55 Received Acetaminophen [Tylenol] Med 08/23/19 19:35 Active 650 mg PO Q4H PRN Calcium Carbonate [Tums] Med 08/23/19 19:35 Active 1,000 mg PO Q2H PRN Lactated Ringers [Ringers, Lactated] 1,000 ml Med 08/23/19 19:45 Active IV ASDIRECTED Lactated Ringers [Ringers, Lactated] 1,000 ml Med 08/23/19 19:45 Active IV ASDIRECTED Nalbuphine [Nubain] Med 08/23/19 19:35 Active 10 mg IVPUSH Q2H PRN Ondansetron [Zofran] Med 08/23/19 19:35 Active 4 mg IVPUSH Q4H PRN Oxytocin/Lactated Ringers [Pitocin in LR 10 Units/1,000 Med 08/23/19 19:45 Ac tive ML] 10 unit in 1,000 ml IV ASDIRECTED Oxytocin/Lactated Ringers [Pitocin in LR 10 Units/1,000 Med 08/23/19 20:15 Active ML] 10 unit in 1,000 ml IV TITRATE Sodium Chloride 0.9% [Saline Flush] Med 08/23/19 19:35 Active 10 ml FLUSH ASDIRECTED PRN DVT/VTE Prophylaxis Reflex [OM.PC] Routine Ot 08/23/19 19:38 Ordered Electronic Heart Tones Ext w TOCO [WOMSER] Ot 08/23/19 19:35 Ordered Routine Electronic Heart Tones Internal [WOMSER] Per Unit Ot 08/23/19 19:35 Ordered Routine Peripheral IV Insertion Adult [OM.PC] Routine Ot 08/23/19 19:35 Ordered Peripheral IV Insertion Adult [OM.PC] Routine Ot 08/23/19 19:35 Ordered Resuscitation Status Routine Resus Stat 08/23/19 19:35 Ordered Medication Orders Acetaminophen (Tylenol) 650 mg PO Q4H PRN PRN Reason: Pain (Mild 1-3) and fever Calcium Carbonate/Glycine (Tums) 1,000 mg PO Q2H PRN PRN Reason: Indigestion Lactated Ringer's (Ringers, Lactated) 1,000 mls @ 40 mls/hr IV ASDIRECTED JHONNY Last Admin: 08/23/19 20:07 Dose: 40 mls/hr Documented by: CARLA Lactated Ringer's (Ringers, Lactated) 1,000 mls @ 100 mls/hr IV ASDIRECTED JHONNY Oxytocin/Lactated Ringer's (Pitocin In Lr 10 Units/1,000 Ml) 10 unit in 1,000 mls @ 500 mls/hr IV ASDIRECTED JHONNY; Protocol Oxytocin/Lactated Ringer's (Pitocin In Lr 10 Units/1,000 Ml) 10 unit in 1,000 mls @ 12 mls/hr IV TITRATE JHONNY; Protocol Last Titration: 08/23/19 21:00 Dose: 8 munits/min, 48 mls/hr Documented by: Titration: 08/23/19 20:45 Dose: 6 munits/min, 36 mls/hr Documented by: Titration: 08/23/19 20:25 Dose: 4 munits/min, 24 mls/hr Documented by: Admin: 08/23/19 20:10 Dose: 2 munits/min, 12 mls/hr Documented by: CARLA Nalbuphine HCl (Nubain) 10 mg IVPUSH Q2H PRN PRN Reason: Pain Ondansetron HCl (Zofran) 4 mg IVPUSH Q4H PRN PRN Reason: Nausea/Vomiting Sodium Chloride (Saline Flush) 10 ml FLUSH ASDIRECTED PRN PRN Reason: Keep Vein Open Assessment/Plan Comment:: 1. 39-4/7 week intrauterine with patient admitted for elective induction of labor. 2. Risk factors for the include a history of preeclampsia with severe features in last 3. Patient desires epidural in labor and delivery 4.Group B strep negative 5. The patient plans to breast-feed. 6. She is rubella immune. She is received her T Dap. She declines flu vaccination. 7. Patient declined genetic testing during the course of 8. She has history of restless leg syndrome Plan: 1. Pitocin induction with artificial rupture membranes augmentation of labor. Procedure, risks, benefits, initiation of labor, potential length of labor all discussed with patient. She appears understand, wishes to proceed. 2. Epidural when necessary for analgesia. Will have a Hardin catheter placed in her bladder and sequential compression stockings placed prophylactically at that time 3. Interestingly normal spontaneous vaginal delivery 4. Support breast-feeding decision 5. CBC, RPR upon admission to labor and delivery.
[2019-08-23] MEDS ORDERED: Bupivacaine/fentaNYL/NS 100 ML Bag EPIDUR PRN (22:17)
[2019-08-23] MEDS ORDERED: ePHEDrine 50 MG/ML SDV IVPUSH PRN (22:17)
[2019-08-23] MEDS ORDERED: fentaNYL 100 MCG/2 ML SDV EPIDUR PRN (22:17)
[2019-08-23] MEDS ORDERED: diphenhydrAMINE 50 MG/ML SDV IVPUSH PRN (22:17)
--- NOTE | 2019-08-23 22:18 | PCM.PREANE ---
Preanesthetic Assessment - Anesthesia/Transfusion/Family Hx Anesthesia History: Prior Anesthesia Without Reaction Family History of Anesthesia Reaction: No Transfusion History: No Prior Transfusion(s) Intubation History: Unknown - Review of Systems General: No Symptoms Pulmonary: No Symptoms Cardiovascular: No Symptoms Gastrointestinal: No Symptoms Neurological: No Symptoms Other: Reports: None - Physical Assessment Vital Signs: Last Vital Signs Temp 36.7 C 08/23/19 19:35 Pulse 95 08/23/19 19:35 Resp 16 08/23/19 19:35 BP 132/84 08/23/19 19:35 Pulse Ox 98 08/23/19 19:35 Height: 1.65 m Weight: 98.883 kg ASA Class: 2 Mental Status: Alert & Oriented x3 Airway Class: Mallampati = 2 Dentition: Reports: Normal Dentition Thyro-Mental Finger Breadths: 3 Mouth Opening Finger Breadths: 3 ROM/Head Extension: Full Lungs: Clear to Auscultation, Normal Respiratory Effort Cardiovascular: Regular Rate, Regular Rhythm - Lab Values: Laboratory Last Values WBC 10.16 K/mm3 (3.98-10.04) H 08/23/19 19:53 RBC 4.19 M/mm3 (3.98-5.22) 08/23/19 19:53 Hgb 10.2 gm/dl (11.2-15.7) L 08/23/19 19:53 Hct 32.3 % (34.1-44.9) L 08/23/19 19:53 MCV 77.1 fl (79.4-94.8) L 08/23/19 19:53 MCH 24.3 pg (25.6-32.2) L 08/23/19 19:53 MCHC 31.6 g/dl (32.2-35.5) L 08/23/19 19:53 RDW Std Deviation 37.8 fL (36.4-46.3) 08/23/19 19:53 Plt Count 318 K/mm3 (182-369) 08/23/19 19:53 MPV 9.7 fl (9.4-12.3) 08/23/19 19:53 Neut % (Auto) 59.8 % (34.0-71.1) 08/23/19 19:53 Lymph % (Auto) 32.2 % (19.3-51.7) 08/23/19 19:53 Wolfe % (Auto) 7.3 % (4.7-12.5) 08/23/19 19:53 Eos % (Auto) 0.3 (0.7-5.8) L 08/23/19 19:53 Baso % (Auto) 0.2 % (0.1-1.2) 08/23/19 19:53 Neut # (Auto) 6.08 K/mm3 (1.56-6.13) 08/23/19 19:53 Lymph # (Auto) 3.27 K/mm3 (1.18-3.74) 08/23/19 19:53 Wolfe # (Auto) 0.74 K/mm3 (0.24-0.36) H 08/23/19 19:53 Eos # (Auto) 0.03 K/mm3 (0.04-0.36) L 08/23/19 19:53 Baso # (Auto) 0.02 K/mm3 (0.01-0.08) 08/23/19 19:53 COVID-19 (SACHI) Negative (NEGATIVE) 08/23/19 19:42 - Allergies Allergies/Adverse Reactions: Allergies Allergy/AdvReac Type Severity Reaction Status Date / Time No Known Allergies Allergy Verified 08/23/19 21:48 - Acknowledgements Anesthesia Type Planned: Epidural Pt an Appropriate Candidate for the Planned Anesthesia: Yes Alternatives and Risks of Anesthesia Discussed w Pt/Guardian: Yes Pt/Guardian Understands and Agrees with Anesthesia Plan: Yes PreAnesthesia Questionnaire HEENT History: Reports: None Cardiovascular History: Reports: Hypertension Gastrointestinal History: Reports: Other (See Below) (Some type of esophageal surgery was performed when she was a baby.) Genitourinary History: Reports: None 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 low serum progesterone level Musculoskeletal History: Reports: Other (See Below) Other Musculoskeletal History: restless leg syndrome - Past Surgical History HEENT Surgical History: Reports: Oral Surgery Cardiovascular Surgical History: Reports: None GI Surgical History: Reports: Other (See Below) Other GI Surgeries/Procedures: esophageal surgery as a 3 month old Female Surgical History: Reports: LEEP, Other (See Below) Other Female Surgeries/Procedures: Colposcopy Musculoskeletal Surgical History: Reports: None - SUBSTANCE USE Smoking Status *Q: Never Smoker Recreational Drug Use History: No - HOME MEDS Home Medications: Home Meds Aspirin [Low Dose Aspirin EC] 81 mg PO DAILY 08/23/19 [History] Calcium Carbonate [Calcium] 500 mg PO DAILY 08/23/19 [History] Folic Acid 1 mg PO DAILY 08/23/19 [History] No122/Iron/Folic Acid [ Multi Tablet] 1 each PO DAILY 08/23/19 [History] hydrOXYzine HCL [Hydroxyzine HCl] 25 mg PO Q6HR PRN 08/23/19 [History] - CURRENT (IN HOUSE) MEDS Current Meds: Current Medications Acetaminophen (Tylenol) 650 mg PO Q4H PRN PRN Reason: Pain (Mild 1-3) and fever Calcium Carbonate/Glycine (Tums) 1,000 mg PO Q2H PRN PRN Reason: Indigestion Diphenhydramine HCl (Benadryl) 25 mg IVPUSH Q6H PRN PRN Reason: pruritis Ephedrine Sulfate (Ephedrine Sulfate) 5 mg IVPUSH ASDIRECTED PRN PRN Reason: Hypotension Fentanyl (Sublimaze) 100 mcg EPIDUR Q3H PRN PRN Reason: Pain Fentanyl/Bupivacaine HCl (Fentanyl/Bupivacaine/Ns 2 Mcg-0.125% 100 Ml) 100 ml EPIDUR ASDIRECTED PRN PRN Reason: Pain Lactated Ringer's (Ringers, Lactated) 1,000 mls @ 40 mls/hr IV ASDIRECTED JHONNY Last Admin: 08/23/19 20:07 Dose: 40 mls/hr Documented by: Lactated Ringer's (Ringers, Lactated) 1,000 mls @ 100 mls/hr IV ASDIRECTED JHONNY Oxytocin/Lactated Ringer's (Pitocin In Lr 10 Units/1,000 Ml) 10 unit in 1,000 mls @ 500 mls/hr IV ASDIRECTED JHONNY; Protocol Oxytocin/Lactated Ringer's (Pitocin In Lr 10 Units/1,000 Ml) 10 unit in 1,000 mls @ 12 mls/hr IV TITRATE JHONNY; Protocol Last Titration: 08/23/19 21:00 Dose: 8 munits/min, 48 mls/hr Documented by: Nalbuphine HCl (Nubain) 10 mg IVPUSH Q2H PRN PRN Reason: Pain Ondansetron HCl (Zofran) 4 mg IVPUSH Q4H PRN PRN Reason: Nausea/Vomiting Sodium Chloride (Saline Flush) 10 ml FLUSH ASDIRECTED PRN PRN Reason: Keep Vein Open Discontinued Medications Lidocaine HCl (Xylocaine 1%) 20 ml INJECT ONETIME ONE Stop: 08/23/19 19:36
[2019-08-24] MEDS ORDERED: Bupivacaine 0.25% 10 ML SDV ONE
[2019-08-24] MEDS: Lactated Ringers 1,000 ML IV SCH (05:14)
--- NOTE | 2019-08-24 06:22 | PCM.SN.2 ---
- Free Text/Narrative Note: Delivery note: Jimmy is a 28-year-old 3 para 1011 white female who presently is at 39 and 47 weeks gestational age with an DEO of 08/26/2019 was admitted for elective induction of labor. Jimmy underwent Pitocin induction of labor to bring the head down against cervix. She then underwent artificial rupture membranes augmentation. She had an epidural for labor analgesia. She progressed to about 8 cm relatively rapidly but from 8-10 she progressed slowly with presenting the direct occiput posterior position. At 0554 hrs. on 08/24/2019 discussion was held with patient concerning use of vacuum extractor to assist in delivery. The procedure, risks, benefits, alternatives including continued pushing for possi ble were offered to the patient. She decided on attempted vacuum extraction. Strap was applied and over the course of 3 contractions the baby was brought down to a running position. Vacuum extractor was removed and patient pushed to effect delivery. The patient delivered a viable, lopes, male with Apgars of 4 and 9, weight of 3710 g (8 pounds 2.9 ounces), a length 21 inches in a direct occiput posterior position. Baby was placed on mom's abdomen, bulb suctioned and cord was clamped Allis right away and cut by the father Misael. He was taken to the warmer for oxygen blow-by therapy. Heart rate was good from the beginning. The Pitocin was increased to 500 mls per hour to facilitate increase in uterine tone and decrease likelihood of bleeding. Patient had a small midline episiotomy. This was repaired with 3-0 Monocryl suture in a routine fashion. Cord blood was obtained. The umbilical cord had 3 blood vessels. The placenta delivered at 0558 hours in a Florentino presentation. It appeared intact and complete and was discarded per patient desire. Estimated blood loss was 100 mL. Patient plans to breast-feed. Condition: Good.
[2019-08-24] MEDS ORDERED: Docusate Sodium 100 MG Cap PO PRN (06:58)
[2019-08-24] MEDS ORDERED: Benzocaine/Menthol 20%-0.5% Spray 56 GM Canister TOP PRN (06:58)
[2019-08-24] MEDS ORDERED: Witch Hazel Medicated Pads 40/Jar TOP PRN (06:58)
[2019-08-24] MEDS: Ibuprofen 600 MG Tab PO PRN ×4 (07:44→21:17)
--- NOTE | 2019-08-24 08:06 | PCM48HPAN ---
Post Anesthesia Note - EVALUATION WITHIN 48HRS OF ANESTHETIC Vital Signs in Normal Range: Yes Patient Participated in Evaluation: Yes Respiratory Function Stable: Yes Airway Patent: Yes Cardiovascular Function Stable: Yes Hydration Status Stable: Yes Pain Control Satisfactory: Yes Nausea and Vomiting Control Satisfactory: Yes Mental Status Recovered: Yes Vital Signs: Last Vital Signs Temp 36.7 C 08/23/19 19:35 Pulse 95 08/23/19 19:35 Resp 16 08/23/19 19:35 BP 132/84 08/23/19 19:35 Pulse Ox 98 08/23/19 19:35
[2019-08-24] MEDS: Acetaminophen 325 MG Tab PO PRN ×2 (14:59→19:33)
[2019-08-25] MEDS: Acetaminophen 325 MG Tab PO PRN ×2 (00:38→04:50)
[2019-08-25] MEDS: Ibuprofen 600 MG Tab PO PRN ×4 (01:52→15:51)
--- NOTE | 2019-08-25 21:04 | PCM.SN.2 ---
- Free Text/Narrative Note: note: Patient is doing well in the period. Minimal lochia, voiding well, ambulated without problems. Nursing without concerns. Patient is afebrile, vital signs are stable Abdomen is flat, soft, uterus is below the umbilicus and is firm and nontender. Legs are nontender. Assessment: recovery going well. Plan: Routine care. Patient be discharged home within the next 24-48 hours.
[2019-08-26] MEDS: Ibuprofen 600 MG Tab PO PRN ×2 (00:16→06:19)
--- NOTE | 2019-08-26 06:16 | PCM.DCSUM1 ---
Discharge Summary - Hospital Course Free Text/Narrative:: Jimmy is a 28-year-old 3 para 1011 white female who presently is at 39 and 47 weeks gestational age with an DEO of 08/26/2019 was admitted for elective induction of labor. Jimmy underwent Pitocin induction of labor to bring the head down against cervix. She then underwent artificial rupture membranes augmentation. She had an epidural for labor analgesia. She progressed to about 8 cm relatively rapidly but from 8-10 she progressed slowly with presenting the direct occiput posterior position. At 0554 hrs. on 08/24/2019 discussion was held with patient concerning use of vacuum extractor to assist in delivery. The procedure, risks, benefits, alternatives including continued pushing for possible were offered to the patient. She decided on attempted vacuum extraction. Strap was applied and over the course of 3 contractions the baby was brought down to a running position. Vacuum extractor was removed and patient pushed to effect delivery. The patient delivered a viable, lopes, male with Apgars of 4 and 9, weight of 3710 g (8 pounds 2.9 ounces), a length 21 inches in a direct occiput posterior position. Baby was placed on mom's abdomen, bulb suctioned and cord was clamped Allis right away and cut by the father Misael. He was taken to the warmer for oxygen blow-by therapy. Heart rate was good from the beginning. The Pitocin was increased to 500 mls per hour to facilitate increase in uterine tone and decrease likelihood of bleeding. Patient had a small midline episiotomy. This was repaired with 3-0 Monocryl suture in a routine fashion. Cord blood was obtained. The umbilical cord had 3 blood vessels. The placenta delivered at 0558 hours in a Florentino presentation. It appeared intact and complete and was discarded per patient desire. Estimated blood loss was 100 mL. Patient plans to breast-feed. Baby did have some bruising to the face because of the direct occiput posterior position and close interaction with pubic bone. It is doing well as is mom. Mom is nursing without problems, voiding well and ambulating without concerns. Vital signs stable, patient been afebrile. Patient desires discharge home. Condition: Good. Diagnosis: Stroke: No - Discharge Data Discharge Date: 08/26/19 Discharge Disposition: Home, Self-Care 01 Condition: Good - Referral to Home Health Primary Care Physician: Alexis Jennings MD - Patient Instructions Diet: Regular Diet as Tolerated (Nursing diet and increase calories and calcium as recommended) Activity: As Tolerated Driving: May Drive Today Showering/Bathing: May Shower (May take a bath) Notify Provider of: Fever, Increased Pain, Swelling and Redness, Nausea and/or Vomiting - Discharge Plan Home Medications: Home Meds Calcium Carbonate [Calcium] 500 mg PO DAILY 08/23/19 [History] No122/Iron/Folic Acid [ Multi Tablet] 1 each PO DAILY 08/23/19 [History] Acetaminophen [Tylenol] 650 mg PO Q4H PRN tablet 08/26/19 [Rx] Ibuprofen [Motrin] 600 mg PO Q4H PRN tablet 08/26/19 [Rx] Referrals: Alexis Jennings MD [Primary Care Provider] - (Return to clinicDr. [facility] nurse practitioner2 weeks.) - Discharge Summary/Plan Comment DC Time >30 min.: No Discharge Summary/Plan Comment: Discharge instructions: 1. Discharge home 2. Diet, activity and follow-up discussed with patient. Recommend nursing diet with increased calories and calcium. 3. Precautions given concern increased pain, bleeding, temperature, signs/symptoms of DVT/PE. 4. Medications per home medication was printed, discussed with and given to the patient. 5. Return to clinic-Dr. Jennings or Kasandra paz nurse practitioner-[facility] in 2 weeks. Diagnosis: Term -delivered Condition: Good - Patient Data Vitals - Most Recent: Last Vital Signs Temp 36.6 C 08/26/19 03:32 Pulse 74 08/26/19 03:32 Resp 15 08/26/19 03:32 BP 118/63 08/26/19 03:32 Pulse Ox 97 08/26/19 03:32 Weight - Most Recent: 98.883 kg I&O - Last 24 hours: Intake & Output 08/25/19 08/25/19 08/26/19 14:59 22:59 06:59 Intake Total 330 Balance 330 Med Orders - Current: Current Medications Acetaminophen (Tylenol) 650 mg PO Q4H PRN PRN Reason: mild pain or fever Last Admin: 08/25/19 04:50 Dose: 650 mg Documented by: Benzocaine/Menthol (Dermoplast Pain Relief Sk[place]man) 0 gm TOP ASDIRECTED PRN PRN Reason: Perineal Comfort Measure Last Admin: 08/24/19 07:45 Dose: 1 canister Documented by: Docusate Sodium (Colace) 100 mg PO BID PRN PRN Reason: Constipation Last Admin: 08/24/19 07:44 Dose: 100 mg Documented by: Ibuprofen (Motrin) 600 mg PO Q4H PRN PRN Reason: Mild pain or fever Last Admin: 08/26/19 00:16 Dose: 600 mg Documented by: Rupinder Yao (Tucks) 1 pad TOP ASDIRECTED PRN PRN Reason: Perineal Comfort Measure Last Admin: 08/24/19 07:46 Dose: 1 container Documented by: Discontinued Medications Acetaminophen (Tylenol) 650 mg PO Q4H PRN PRN Reason: Pain (Mild 1-3) and fever Bupivacaine HCl (Sensorcaine-Mpf 0.25%) 10 ml .ROUTE .[facility] ONE Stop: 08/24/19 00:01 Calcium Carbonate/Glycine (Tums) 1,000 mg PO Q2H PRN PRN Reason: Indigestion Diphenhydramine HCl (Benadryl) 25 mg IVPUSH Q6H PRN PRN Reason: pruritis Last Admin: 08/24/19 03:19 Dose: 25 mg Documented by: Ephedrine Sulfate (Ephedrine Sulfate) 5 mg IVPUSH ASDIRECTED PRN PRN Reason: Hypotension Fentanyl (Sublimaze) 100 mcg EPIDUR Q3H PRN PRN Reason: Pain Last Admin: 08/23/19 22:29 Dose: 100 mcg Documented by: Fentanyl/Bupivacaine HCl (Fentanyl/Bupivacaine/Ns 2 Mcg-0.125% 100 Ml) 100 ml EPIDUR ASDIRECTED PRN PRN Reason: Pain Last Admin: 08/23/19 22:31 Dose: 100 ml Documented by: Lactated Ringer's (Ringers, Lactated) 1,000 mls @ 40 mls/hr IV ASDIRECTED [facility] Last Admin: 08/24/19 05:14 Dose: 999 mls/hr Documented by: Lactated Ringer's (Ringers, Lactated) 1,000 mls @ 100 mls/hr IV ASDIRECTED [facility] Oxytocin/Lactated Ringer's (Pitocin In Lr 10 Units/1,000 Ml) 10 unit in 1,000 mls @ 500 mls/hr IV ASDIRECTED JHONNY; Protocol Last Admin: 08/24/19 06:20 Dose: 500 mls/hr Documented by: Oxytocin/Lactated Ringer's (Pitocin In Lr 10 Units/1,000 Ml) 10 unit in 1,000 mls @ 12 mls/hr IV TITRATE JHONNY; Protocol Last Titration: 08/24/19 03:22 Dose: 18 munits/min, 108 mls/hr Documented by: Lidocaine HCl (Xylocaine 1%) 20 ml INJECT ONETIME ONE Stop: 08/23/19 19:36 Last Admin: 08/24/19 21:45 Dose: Not Given Documented by: Nalbuphine HCl (Nubain) 10 mg IVPUSH Q2H PRN PRN Reason: Pain Ondansetron HCl (Zofran) 4 mg IVPUSH Q4H PRN PRN Reason: Nausea/Vomiting Sodium Chloride (Saline Flush) 10 ml FLUSH ASDIRECTED PRN PRN Reason: Keep Vein Open
[2019-08-26 10:33] VITALS: BP 136/84; PULSE 96
== END 2019-08-26 10:00 | disposition home or self-care (01) | DRG 560 ==
LOC: JD.OB 05:54 → OBSVTOIN 08-24 05:54 → JD.OB 08-24 05:55
PROVIDERS: ADMIT Obstetrics & Gynecology; ATTEND Obstetrics & Gynecology
PROC: 10D07Z6 Extraction of Products of Conception, Vacuum, Via Natural or Artificial Opening (ICD-10-PCS; principal; 2019-08-24)
PROC: 10907ZC Drainage of Amniotic Fluid, Therapeutic from Products of Conception, Via Natural or Artificial Opening (ICD-10-PCS; 2019-08-24)
PROC: 3E033VJ Introduction of Other Hormone into Peripheral Vein, Percutaneous Approach (ICD-10-PCS; 2019-08-24)
PROC: 0W8NXZZ Division of Female Perineum, External Approach (ICD-10-PCS; 2019-08-24)
PROC: 3E0R3BZ Introduction of Anesthetic Agent into Spinal Canal, Percutaneous Approach (ICD-10-PCS; 2019-08-24)
PROC: 00HU33Z Insertion of Infusion Device into Spinal Canal, Percutaneous Approach (ICD-10-PCS; 2019-08-24)
DX: O16.4 Unspecified maternal hypertension, complicating childbirth (principal); Z37.0 Single live birth; Z3A.39 39 weeks gestation of pregnancy; Z11.59 Encounter for screening for other viral diseases
CPT/HCPCS: 01967; 36415; 51701; 51702; 59025; 59409; 85025; 86592; A9270-GY; J1200; J2590; J3010; J3490; J7120; U0002